=== PATIENT | female | born 1955 | race Caucasian/White ===

== ENCOUNTER → 2019-06-10 10:03 | Outpatient (CLI) | payer BC, SELFPAY ==
[2019-06-10 12:40] LABS: CRP < 2.90 mg/L (0.0-3.0)
[2019-06-11 16:07] LABS: Endomysial Antibody IgA Negative (Negative)
[2019-06-11 16:40] LABS: Immunoglobulin A 157 mg/dL (87-352); t-Transglutaminase IgA <2 U/mL (0-3)
== END ==
LOC: MTLAB 10:06
PROVIDERS: PCP Preventive Medicine Occupational Medicine; Referring Provider Internal Medicine Gastroenterology; Visit Provider Internal Medicine Gastroenterology
DX: R19.7 Diarrhea, unspecified (principal)
CPT/HCPCS: 36415; 82784; 83516; 86140; 86255